=== PATIENT | male | born 1960 | race Caucasian/White ===

== ENCOUNTER 2018-03-30 11:21 | Emergency (ER) | payer BC ==
[2018-03-30] MEDS ORDERED: KETOROLAC TROMETHAMINE INJ/PF 30 MG/1 ML SDV IV ONE (11:45)
[2018-03-30] MEDS ORDERED: ONDANSETRON HCL INJ/PF 4 MG/2 ML SDV IV ONE (11:45)
--- NOTE | 2018-03-30 12:24 | ER Document Report ---
Entered by FANNY NEAL SCRIBE 03/30/18 1159 Acting as scribe for:WILL CARDOSO DO ED Medical Screen (RME) - General Chief Complaint: Flank Pain Stated Complaint: FLANK PAIN Time Seen by Provider: 03/30/18 11:36 Primary Care Provider: WENDY AGUILAR MD [Primary Care Provider] - Follow up as needed Mode of Arrival: Ambulatory Information source: Patient Notes: Patient is a 37-year-old male with history of kidney stones presents to the emergency department complaining of left lower back pain. Patient states the pain radiates from his left lower back into his left lower abdomen. He states his current pain is similar to an kidney stone he had 15 years ago and was diagnosed with kidney stones via a CT scan. States that he had 22 kidney stones removed 15 years ago. Has not had one since then. Denies any dysuria. I have greeted and performed a rapid initial assessment of this patient. A comprehensive ED assessment and evaluation of the patient, analysis of test results and completion of the medical decision making process will be conducted by additional ED providers. GENERAL: Alert, Appears uncomfortable. Occasionally holds left lower back. HEAD: Normocephalic, Atraumatic. EYES: Pupils equal, round, and reactive to light. EOMI. ENT: Oral mucosa moist, tongue midline. NECK: Full range of motion. Supple. Trachea midline. LUNGS: No respiratory distress. EXTREMITIES: Moves all four extremities spontaneously. PSYCH: Normal affect, normal mood. TRAVEL OUTSIDE OF THE [place] IN LAST 30 DAYS: No - Related Data Allergies/Adverse Reactions: No Known Allergies Allergy (Verified 03/30/18 11:35) Past Medical History - Social History Frequency of alcohol use: Rare Drug Abuse: None - Past Medical History Cardiac Medical History: Reports: Hx Hypercholesterolemia, Hx Hypertension Renal/ Medical History: Reports: Hx Kidney Stones. Denies: Hx Peritoneal Dialysis GI Medical History: Reports: Hx Gastroesophageal Reflux Disease Musculoskeltal Medical History: Reports Hx Arthritis Past Surgical History: Reports: Hx Orthopedic Surgery - rkr - Immunizations Hx Diphtheria, Pertussis, Tetanus Vaccination: Yes Physical Exam - Vital signs Vitals: Temp Pulse Resp BP Pulse Ox 97.9 F 89 19 157/103 H 99 03/30/18 11:28 03/30/18 11:28 03/30/18 11:28 03/30/18 11:28 03/30/18 11:28 Course - Vital Signs Vital signs: Temp Pulse Resp BP Pulse Ox 97.9 F 89 19 157/103 H 99 03/30/18 11:28 03/30/18 11:28 03/30/18 11:28 03/30/18 11:28 03/30/18 11:28 Doctor's Discharge - Discharge Referrals: WENDY AGUILAR MD [Primary Care Provider] - Follow up as needed I personally performed the services described in the documentation, reviewed and edited the documentation which was dictated to the scribe in my presence, and it accurately records my words and actions.
[2018-03-30 13:20] LABS: APPEARANCE,URINE SLIGHTLY-CLOUDY; BILIRUBIN,URINE NEGATIVE (NEGATIVE); COLOR,URINE YELLOW; GLUCOSE, URINE NEGATIVE (NEGATIVE); KETONES,URINE NEGATIVE (NEGATIVE); LEUKOCYTE ESTERASE,URINE NEGATIVE (NEGATIVE); NITRITE,URINE NEGATIVE (NEGATIVE); PROTEIN,URINE 30 mg/dL (NEGATIVE); URINE SPECIFIC GRAVITY 1.016; UROBILINOGEN,URINE NEGATIVE mg/dL (<2.0)
--- NOTE | 2018-03-30 13:38 | RADIOLOGY REPORT (SQ) ---
EXAM DESCRIPTION: CT ABD/PELVIS NO ORAL OR IV COMPLETED DATE/TIME: 03/30/2018 1:11 pm REASON FOR STUDY: left flank pain, h/o stones COMPARISON: KUB 04/11/2015 TECHNIQUE: CT scan of the abdomen and pelvis performed without intravenous or oral contrast. Images reviewed with lung, soft tissue, and bone windows. Reconstructed coronal and sagittal MPR images revi ewed. All images stored on PACS. All CT scanners at this facility use dose modulation, iterative reconstruction, and/or weight based d osing when appropriate to reduce radiation dose to as low as reasonably achievable (ALARA). [facility]: Dose Right [facility]: CareDose [facility]: Dose Right [facility]: Teradose 4D [facility]: Smart [employer] RADIATION DOSE: CT Rad equipment meets quality standard of care and radiation dose reduction techniq ues were employed. CTDIvol: 15.7 mGy. DLP: 933 mGy-cm.mGy. LIMITATIONS: None. FINDINGS: LOWER CHEST: No significant findings. No nodules or infiltrates. NON-CONTRASTED LIVER, SPLEEN, ADRENALS: Evaluation limited by lack of IV contrast. No identified sign ificant masses. PANCREAS: No masses. No peripancreatic inflammatory changes. GALLBLADDER: No identified stones by CT criteria. No inflammatory changes to suggest cholecystitis. RIGHT KIDNEY AND URETER: No suspicious masses. Assessment limited by lack of IV contrast. 1 cm cyst right upper and lower pole kidney. No significant calcifications. No hydronephrosis or hydrourete r. LEFT KIDNEY AND URETER: No suspicious masses. Assessment limited by lack of IV contrast. Tiny 2 mm u pper and lower pole intrarenal nonobstructive calculi. No left ureteral stones. No hydronephrosis or hydroureter. AORTA AND RETROPERITONEUM: No aneurysm. No retroperitoneal masses or adenopathy. BOWEL AND PERITONEAL CAVITY: No obvious masses or inflammatory changes. No free fluid.Descending and sigmoid colon diverticuli without diverticulitis APPENDIX: Normal. PELVIS, BLADDER, AND ABDOMINAL WALL:No abnormal masses. No free fluid. Bladder normal. BONES: No significant findings. OTHER: No other significant finding. IMPRESSION: NO SIGNIFICANT OR ACUTE PROCESS IN THE ABDOMEN OR PELVIS. COMMENT: Quality ID # [id number]: Final reports with documentation of one or more dose reduction techniques (e.g., Automated exposure control, adjustment of the mA and/or kV according to patient size, use of iterative reconstruction technique) TECHNICAL DOCUMENTATION: JOB ID: [id number] [employer]- All Rights Reserved Reading location - IP/workstation name: [email or web address]
[2018-03-30] MEDS ORDERED: MORPHINE SULFATE 10 MG/ML INJ IV ONE (13:45)
[2018-03-30 14:45] LABS: ABSOLUTE BASOPHILS # (AUTO) 0.1 10^3/uL (0.0-0.2); ABSOLUTE EOSINOPHILS # (AUTO) 0.2 10^3/uL (0.0-0.6); ABSOLUTE LYMPHOCYTES (AUTO) 2.9 10^3/uL (0.5-4.7); ABSOLUTE MONOCYTES (AUTO) 0.7 10^3/uL (0.1-1.4); ABSOLUTE NEUT (AUTO) 6.3 10^3/uL (1.7-8.2); LYMPHOCYTES % (AUTO) 28.8 % (13-45); MEAN CORPUSCULAR HEMOGLOBIN 31.9 pg (27.0-33.4); MEAN CORPUSCULAR HGB CONC 34.7 g/dL (32.0-36.0); MEAN CORPUSCULAR VOLUME 92 fl (80-97); MONOCYTES % (AUTO) 6.7 % (3-13); PLATELET COUNT 227 10^3/uL (150-450); RED CELL DISTRIBUTION WIDTH 13.3 % (11.5-14.0); SEGMENTED NEUTROPHILS % (AUTO) 61.5 % (42-78); TOTAL CELLS COUNTED % (AUTO) 100 %; WHITE BLOOD COUNT 10.2 10^3/uL (4.0-10.5)
[2018-03-30 15:05] LABS: ALANINE AMINOTRANSFERASE 66 U/L (21-72); ALBUMIN 4.8 g/dL (3.5-5.0); ALKALINE PHOSPHATASE 81 U/L (38-126); ANION GAP 13 (5-19); ASPARTATE AMINO TRANSFERASE 41 U/L (17-59); BILIRUBIN,DIRECT 0.2 mg/dL (0.0-0.4); BILIRUBIN,TOTAL 0.7 mg/dL (0.2-1.3); BLOOD UREA NITROGEN 15 mg/dL (7-20); CALCIUM 9.5 mg/dL (8.4-10.2); CARBON DIOXIDE 24 mmol/L (22-30); CHLORIDE 106 mmol/L (98-107); GLUCOSE 85 mg/dL (75-110); POTASSIUM 3.9 mmol/L (3.6-5.0); SODIUM 142.7 mmol/L (137-145); TOTAL PROTEIN 7.2 g/dL (6.3-8.2)
--- NOTE | 2018-03-30 16:01 | ER Document Report ---
ED General - General Chief Complaint: Flank Pain Stated Complaint: FLANK PAIN Time Seen by Provider: 03/30/18 11:36 Mode of Arrival: Ambulatory Notes: Patient is an otherwise healthy 57-year-old male who presents with chief complaint of left-sided flank pain that is been ongoing for approximately 2 days. Patient reports the pain is intermittent and feels similar to when he has had kidney stones in the past. Patient denies any difficulty urine and denies any blood in his urine. Patient has not had any fever. Patient reports nausea but has had no vomiting or diarrhea. TRAVEL OUTSIDE OF THE [place] IN LAST 30 DAYS: No - Related Data Allergies/Adverse Reactions: No Known Allergies Allergy (Verified 03/30/18 11:35) Past Medical History - General Information source: Patient - Social History Smoking Status: Current Every Day Smoker Frequency of alcohol use: Rare Drug Abuse: None Family History: Reviewed & Not Pertinent Patient has suicidal ideation: No Patient has homicidal ideation: No - Past Medical History Cardiac Medical History: Reports: Hx Hypercholesterolemia, Hx Hypertension Renal/ Medical History: Reports: Hx Kidney Stones. Denies: Hx Peritoneal Dialysis GI Medical History: Reports: Hx Gastroesophageal Reflux Disease Musculoskeletal Medical History: Reports Hx Arthritis Past Surgical History: Reports: Hx Orthopedic Surgery - rkr - Immunizations Hx Diphtheria, Pertussis, Tetanus Vaccination: Yes Review of Systems - Review of Systems Constitutional: No symptoms reported EENT: No symptoms reported Cardiovascular: No symptoms reported Respiratory: No symptoms reported Gastrointestinal: No symptoms reported Genitourinary: Flank pain Male Genitourinary: No symptoms reported Musculoskeletal: No symptoms reported Skin: No symptoms reported Hematologic/Lymphatic: No symptoms reported Neurological/Psychological: No symptoms reported Physical Exam - Vital signs Vitals: Temp Pulse Resp BP Pulse Ox 97.9 F 89 19 157/103 H 99 03/30/18 11:28 03/30/18 11:28 03/30/18 11:28 03/30/18 11:28 03/30/18 11:28 - Notes Notes: PHYSICAL EXAMINATION: GENERAL: Well-appearing, well-nourished and in no acute distress. HEAD: Atraumatic, normocephalic. EYES: Pupils equal round and reactive to light, extraocular movements intact, sclera anicteric, conjunctiva are normal. ENT: Nares patent, oropharynx clear without exudates. Moist mucous membranes. NECK: Normal range of motion, supple without lymphadenopathy LUNGS: Breath sounds clear to auscultation bilaterally and equal. No wheezes rales or rhonchi. HEART: Regular rate and rhythm without murmurs ABDOMEN: Soft, nontender, nondistended abdomen. No guarding, no rebound. No masses appreciated. Musculoskeletal: Normal range of motion, no pitting or edema. No cyanosis. NEUROLOGICAL: Cranial nerves grossly intact. Normal speech, normal gait. Normal sensory, motor exams PSYCH: Normal mood, normal affect. SKIN: Warm, Dry, normal turgor, no rashes or lesions noted. Course - Re-evaluation Re-evalutation: Labs as recorded are unremarkable. CT renal stone study is negative for any acute findings to include kidney stones. Patient did mention initially that when his pain radiates occasionally radiates all the way down into his testicle. This was discussed further with the patient who declines to have a testicular exam done and also declines the offer of a testicular ultrasound. Patient does report his pain is much more tolerable at this time. Patient will be discharged home in stable condition. We did discuss the possibility that patient's stone has already passed which is why no stone was identified on CT and why patient is feeling better. Patient was given strict ED return precautions. - Vital Signs Vital signs: Temp Pulse Resp BP Pulse Ox 97.9 F 71 16 150/85 H 100 03/30/18 16:06 03/30/18 16:06 03/30/18 16:06 03/30/18 16:06 03/30/18 16:06 - Laboratory Result Diagrams: 03/30/18 14:32 03/30/18 14:32 Laboratory results interpreted by me: 03/30/18 12:38 Urine Protein 30 H Discharge - Discharge Clinical Impression: Flank pain Condition: Stable Disposition: HOME, SELF-CARE Additional Instructions: You were seen and evaluated today in the emergency department for flank pain. The CT did not show any evidence of kidney stone or any other life-threatening cause of your pain. Your blood work and urine today were normal. I have prescribed you some pain medication in case the pain returns. If the pain returns and is worse or persistent or you develop nausea and vomiting or fever please return to the emergency department. You may also follow-up with your primary care provider as we have discussed. Prescriptions: Hydrocodone Bit/Acetaminophen [Hydrocodon-Acetaminophen 5-325] 1 each PO Q4H #12 tablet
[2018-03-30 16:15] VITALS: BP 150/85
== END 2018-03-30 16:17 | disposition home or self-care (01) ==
LOC: ER 11:21
DX: R10.9 Unspecified abdominal pain (principal); R11.0 Nausea; F17.200 Nicotine dependence, unspecified, uncomplicated; I10 Essential (primary) hypertension
CPT/HCPCS: 99284; 96374; 96375; 36415; 85025; 80053; 81001; 74176; J1885; J2270; J2405

== ENCOUNTER 2019-08-07 05:24 | Day surgery (SDC) | payer BC ==
[2019-08-04 10:34] LABS: ABSOLUTE BASOPHILS # (AUTO) 0.1 10^3/uL (0.0-0.2); ABSOLUTE EOSINOPHILS # (AUTO) 0.2 10^3/uL (0.0-0.6); ABSOLUTE LYMPHOCYTES (AUTO) 2.3 10^3/uL (0.5-4.7); ABSOLUTE MONOCYTES (AUTO) 0.6 10^3/uL (0.1-1.4); ABSOLUTE NEUT (AUTO) 7.2 10^3/uL (1.7-8.2); BASOPHILS % (AUTO) 0.6 % (0-2); EOSINOPHILS % (AUTO) 2.3 % (0-6); HEMATOCRIT 46.4 % (37.9-51.0); HEMOGLOBIN 16.2 g/dL (13.5-17.0); LYMPHOCYTES % (AUTO) 21.8 % (13-45); MEAN CORPUSCULAR HEMOGLOBIN 32.6 pg (27.0-33.4); MEAN CORPUSCULAR HGB CONC 34.9 g/dL (32.0-36.0); MEAN CORPUSCULAR VOLUME 93 fl (80-97); MONOCYTES % (AUTO) 5.9 % (3-13); PLATELET COUNT 235 10^3/uL (150-450); RED BLOOD COUNT 4.97 10^6/uL (4.35-5.55); RED CELL DISTRIBUTION WIDTH 13.2 % (11.5-14.0); SEGMENTED NEUTROPHILS % (AUTO) 69.4 % (42-78); TOTAL CELLS COUNTED % (AUTO) 100 %; WHITE BLOOD COUNT 10.4 10^3/uL (4.0-10.5)
--- NOTE | 2019-08-04 10:36 | EKG REPORT ---
SEVERITY:- NORMAL ECG - SINUS RHYTHM : Confirmed by: Joann Jacinto 04-Aug-2019 10:35:00
[2019-08-04 10:59] LABS: ANION GAP 7 (5-19); BLOOD UREA NITROGEN 17 mg/dL (7-20); CALCIUM 9.6 mg/dL (8.4-10.2); CARBON DIOXIDE 25 mmol/L (22-30); CHLORIDE 107 mmol/L (98-107); GLUCOSE 92 mg/dL (75-110); POTASSIUM 4.5 mmol/L (3.6-5.0)
[~2019-08-07 05:24] MED LIST: ACETAMINOPHEN 325 MG TABLET ONE; ACETAMINOPHEN 325 MG TABLET PO PRN; CEFAZOLIN 2 GM/D5W RTU 2 GM/50 ML RTUPB IV ONE; CEFAZOLIN 2 GM/D5W RTU 2 GM/50 ML RTUPB IV PRN; IBUPROFEN 800 MG in NORMAL SALINE 250 ML IV PRN; LACTATED RINGERS 1000 ML IV PRN; LIDOCAINE 0.5% INJ-PF (5 MG/ML) 50 ML SDV SUBCUT PRN; RINGERS SOLUTION,LACTATED 1,000 ML IV PRN
[2019-08-07] MEDS ORDERED: MORPHINE SULFATE 10 MG/ML INJ ONE (06:49)
[2019-08-07] MEDS ORDERED: FENTANYL CITRATE INJ/PF 100 MCG/2 ML AMPUL ONE (06:49)
[2019-08-07] MEDS ORDERED: MIDAZOLAM 2 MG/2 ML INJ ONE (06:49)
[2019-08-07] MEDS ORDERED: PROPOFOL INJ 200 MG/20 ML VIAL IV ONE (06:50)
[2019-08-07] MEDS ORDERED: BUPIVACAINE HCL 0.25 % INJ/PF (2.5 MG/1 ML) 30 ML VIAL ONE (07:22)
[2019-08-07] MEDS ORDERED: SUGAMMADEX SODIUM 200 MG/2 ML SDV IV ONE (08:48)
[2019-08-07] MEDS ORDERED: MORPHINE SULFATE 10 MG/ML INJ IV PRN (09:52)
[2019-08-07] MEDS ORDERED: FENTANYL CITRATE INJ/PF 100 MCG/2 ML AMPUL IV PRN ×3 (09:52)
[2019-08-07] MEDS ORDERED: DIPHENHYDRAMINE HCL 50 MG/ML VIAL IV PRN (09:52)
[2019-08-07] MEDS ORDERED: MEPERIDINE HCL/PF INJ 25 MG/1 ML DISP.SYRIN IV PRN (09:52)
[2019-08-07] MEDS ORDERED: PROMETHAZINE HCL INJ 25 MG/1 ML VIAL IV PRN ×2 (09:52)
[2019-08-07] MEDS ORDERED: ONDANSETRON HCL INJ/PF 4 MG/2 ML SDV IV PRN (09:52)
[2019-08-07] MEDS ORDERED: EPHEDRINE SULFATE INJ 50 MG/1 ML AMPULE ONE (10:10)
[2019-08-07] MEDS ORDERED: HYDROCODONE/ACETAMINOPHEN 10-325 MG TABLET PO PRN (10:20)
--- NOTE | 2019-08-07 10:20 | Operative Report ---
Nonrecallable Operative Report DATE OF SURGERY: 08/07/19 PREOPERATIVE DIAGNOSIS: Symptomatic Bilateral inguinal hernia POSTOPERATIVE DIAGNOSIS: Bilateral pantaloon inguinal hernias OPERATION: Robot-assisted bilateral inguinal hernia repair with mesh SURGEON: TUNG DALY 1ST [employer] EDUCATOR: SILVINA COE ANESTHESIA: GA TISSUE REMOVED OR ALTERED: None COMPLICATIONS: None apparent ESTIMATED BLOOD LOSS: Minimal PROCEDURE: Drains/implants: Large right-sided and left-sided 3 DMax inguinal hernia mesh. Procedure in detail: After informed consent was obtained, the patient was brought to the operating room and laid in the supine position. The area of the abdomen was prepped and draped in a normal sterile fashion. A supraumbilical incision was created with a 15 blade scalpel. Dissection was carried through the subcutaneous tissues using sharp and blunt dissection. The linea alba fa scia was incised sharply, the abdomen was entered sharply. The balloon trocar was inserted, pneumoperitoneum was achieved. 2 8 mm robotic trochars were placed under direct laparoscopic visualization in the right and left lateral abdominal wall. The robot was then brought over the patient and docked appropriately. I then assumed my position at the surgeon's console. Attention was turned to dissection of the left groin. A preperitoneal dissection was undertaken approximately 3 cm superior to the inguinal hernia defects. There was found to be both a direct and indirect hernia defect. The medial dissection was undertaken, and the hernia sac was dissected free of the defect. The direct defect was closed using nonabsorbable 2-0 V Lock Suture in simple running fashion. Next, attention was turned to the cord structures. The hernia sac was freed from the cord structures, taking great care not to injure the cord structures. Once this was completed, a large left-sided 3D max inguinal hernia mesh was placed into the preperitoneal space. It was sutured medially and superiorly using 3-0 Vicryl suture. Once it was found to lie in good position, attention was turned to the right groin. Preperitoneal dissection, in similar fashion, was undertaken on the right side. This was performed 3 cm superior to the inguinal hernia defects. The patient also had a right-sided direct and indirect inguinal hernia defect. The preperitoneal dissection was undertaken. The medial hernia defect and lateral hernia defects were dissected free. The hernia sac was cleared from the cord structures. This was done with great care, so as not to injure the cord structures. The direct hernia defect was then closed using 2-0 nonabsorbable V lock suture. Once this was completed, the right sided 3 DMax inguinal hernia mesh was placed into the preperitoneal space. It was sutured to the abdominal wall medially and superiorly. The mesh was found to lie in good position. Next, the peritoneal openings were closed using 2-0 V Lock suture in simple running fashion. The robot was then undocked, and I scrubbed back into the case. The 8 mm robotic trochars were then removed under direct laparoscopic visualization. The 12 mm trocar was removed, and pneumoperitoneum was relieved. The supraumbilical fascia was closed using 0 Vicryl suture in [id number] fashion. The overlying skin was closed using 4-0 Vicryl Rapide suture in subcuticular fashion. Dressings were placed, and the procedure was concluded. All sponge, instrument, needle counts were correct x2. Condition: Stable. Silvina Coe PA-C was scrubbed and present the entirety of the procedure. She assisted with all portions of the procedure including opening of the abdomen, placement of the trochars, docking of the robot, exchanging of the robotic instruments, placement of the mesh, closure of the fascia, and closure of the skin.
--- NOTE | 2019-08-07 10:27 | Discharge Summary ---
Discharge Summary (SDC) - Discharge Final Diagnosis: Bilateral pantaloon, symptomatic inguinal hernias. Date of Surgery: 08/07/19 Discharge Date: 08/07/19 Condition: Stable Treatment or Instructions: Discharge home. Diet as tolerated. Activity: No lifting greater than 10 pounds. Follow-up with me in 7 to 10 days. Okay to shower starting on Saturday. [place] 10/325 mg p.o. every 6 hours as needed for pain. Ibuprofen 800 mg p.o. 3 times daily with meals. Prescriptions: Ibuprofen [Motrin 800 mg Tablet] 800 mg PO MEALS #42 tablet Referrals: MARII CRUZ PA-C [Primary Care Provider] - Discharge Diet: As Tolerated Respiratory Treatments at Home: Deep Breathing/Coughing, Incentive Spirometer Discharge Activity: No Lifting Over 10 Pounds, No Lifting/Push/Pulling Home Care Assistance: None Needed Report the Following to Your Physician Immediately: Shortness of Breath, Nausea, Vomiting, Increase in Pain, Fever over 101 Degrees, Unusual Bleeding, Redness, Swelling, Warmth
[2019-08-07] MEDS ORDERED: LIDOCAINE 2% INJ-PF (20 MG/ML) 2 ML AMPUL ONE (10:47)
[2019-08-07] MEDS ORDERED: ROCURONIUM BROMIDE INJ 50 MG/5 ML VIAL IV ONE (10:47)
[2019-08-07] MEDS ORDERED: ONDANSETRON HCL INJ/PF 4 MG/2 ML SDV ONE (10:47)
[2019-08-07] MEDS ORDERED: NEOSTIGMINE METHYLSULFATE 10 MG/10 ML VIAL ONE (10:47)
[2019-08-07] MEDS ORDERED: SUCCINYLCHOLINE CHLORIDE INJ 200 MG/10 ML VIAL ONE (10:47)
[2019-08-07] MEDS ORDERED: DEXAMETHASONE SOD PHOSPHATE INJ 4 MG/1 ML VIAL ONE (10:47)
[2019-08-07] MEDS ORDERED: GLYCOPYRROLATE 1 MG/5 ML VIAL ONE (10:47)
[2019-08-07] MEDS ORDERED: HYDROCODONE/ACETAMINOPHEN 10-325 MG TABLET ONE (10:58)
[2019-08-07 11:53] VITALS: BP 120/77
== END 2019-08-07 11:50 | disposition home or self-care (01) ==
LOC: OROUT 05:24
PROVIDERS: ATTEND Surgery
DX: K40.20 Bilateral inguinal hernia, without obstruction or gangrene, not specified as recurrent (principal); E78.2 Mixed hyperlipidemia; I10 Essential (primary) hypertension; K21.9 Gastro-esophageal reflux disease without esophagitis; F17.210 Nicotine dependence, cigarettes, uncomplicated; Z79.899 Other long term (current) drug therapy; Z86.010 Personal history of colon polyps; Z88.5 Allergy status to narcotic agent; Z96.651 Presence of right artificial knee joint
CPT/HCPCS: 49650; S2900; 36415; 80048; 840; 85025; 86850; 86900; 86901; 87635; 93005; 93010; C1781; C9803; J0330; J0690; J1100; J1741; J2250; J2270; J2405; J2704; J2710; J3010; J3490; J7050

== ENCOUNTER 2019-08-24 14:29 | Emergency (ER) | payer BC ==
[2019-08-24 16:19] LABS: HEMATOCRIT 42.1 % (37.9-51.0); HEMOGLOBIN 14.7 g/dL (13.5-17.0); MEAN CORPUSCULAR HEMOGLOBIN 32.4 pg (27.0-33.4); MEAN CORPUSCULAR HGB CONC 34.8 g/dL (32.0-36.0); MEAN CORPUSCULAR VOLUME 93 fl (80-97); PLATELET COUNT 214 10^3/uL (150-450); RED BLOOD COUNT 4.52 10^6/uL (4.35-5.55); RED CELL DISTRIBUTION WIDTH 13.4 % (11.5-14.0); WHITE BLOOD COUNT 11.2 10^3/uL (4.0-10.5)
[2019-08-24 16:24] LABS: APPEARANCE,URINE SLIGHTLY-CLOUDY; BILIRUBIN,URINE NEGATIVE (NEGATIVE); COLOR,URINE AMBER; GLUCOSE, URINE NEGATIVE (NEGATIVE); KETONES,URINE NEGATIVE (NEGATIVE); LEUKOCYTE ESTERASE,URINE NEGATIVE (NEGATIVE); NITRITE,URINE NEGATIVE (NEGATIVE); PROTEIN,URINE 100 mg/dL (NEGATIVE); URINE SPECIFIC GRAVITY 1.025
[2019-08-24 16:39] LABS: ABSOLUTE LYMPHOCYTES# (MANUAL) 0.4 10^3/uL (0.5-4.7); ABSOLUTE MONOCYTES # (MANUAL) 0.3 10^3/uL (0.1-1.4); BAND NEUTROPHILS % (MANUAL) 3 % (3-5); BASOPHILS % (MANUAL) 0 % (0-2); EOSINOPHILS % (MANUAL) 0 % (0-6); LYMPHOCYTES % (MANUAL) 3 % (13-45); MONOCYTES % (MANUAL) 3 % (3-13); SEGMENTED NEUTROPHILS % (MAN) 90 % (42-78); TOTAL CELLS COUNTED 100
[2019-08-24 16:42] LABS: PLATELET COMMENT ADEQUATE
[2019-08-24 16:44] LABS: RBC MORPHOLOGY COMMENT NORMO-CYTIC/CHROMIC; TOXIC VACUOLATION PRESENT
[2019-08-24 16:46] LABS: ALBUMIN 4.2 g/dL (3.5-5.0); ALKALINE PHOSPHATASE 72 U/L (38-126); ANION GAP 8 (5-19); ASPARTATE AMINO TRANSFERASE 37 U/L (17-59); BILIRUBIN,DIRECT 0.2 mg/dL (0.0-0.4); BLOOD UREA NITROGEN 19 mg/dL (7-20); CALCIUM 9.1 mg/dL (8.4-10.2); CARBON DIOXIDE 22 mmol/L (22-30); CHLORIDE 105 mmol/L (98-107); GLUCOSE 112 mg/dL (75-110); POTASSIUM 3.5 mmol/L (3.6-5.0)
--- NOTE | 2019-08-24 17:56 | RADIOLOGY REPORT (SQ) ---
EXAM DESCRIPTION: CHEST SINGLE VIEW IMAGES COMPLETED DATE/TIME: 08/24/2019 5:46 pm REASON FOR STUDY: fever COMPARISON: None. EXAM PARAMETERS: NUMBER OF VIEWS: One view. TECHNIQUE: Single frontal radiographic view of the chest acquired. RADIATION DOSE: NA LIMITATIONS: None. FINDINGS: LUNGS AND PLEURA: Slight bibasilar parenchymal densities are suggested may represent infi ltrates/atelectasis. No pneumothorax or pleural effusion. MEDIASTINUM AND HILAR STRUCTURES: No masses. Contour normal. HEART AND VASCULAR STRUCTURES: Heart normal in size. Normal vasculature. BONES: No acute findings. HARDWARE: None in the chest. OTHER: No other significant finding. IMPRESSION: 1. Slight bibasilar parenchymal densities are suggested, may represent infiltrates/atel ectasis. TECHNICAL DOCUMENTATION: JOB ID: [id number] 2010 [employer]- All Rights Reserved Reading location - IP/workstation name: [email or web address]
[2019-08-24] MEDS ORDERED: CEFTRIAXONE 1 GM/D5W RTU 1 GM/50 ML RTUPB IV ONE (17:58)
[2019-08-24] MEDS ORDERED: AZITHROMYCIN INJ 500 MG VIAL IV ONE (18:02)
[2019-08-24] MEDS ORDERED: POTASSIUM CHLORIDE 20 MEQ PACKET PO ONE (18:42)
[2019-08-24] MEDS: RINGERS SOLUTION,LACTATED 1,000 ML IV PRN ×2 (18:49→22:06)
[2019-08-24] MEDS ORDERED: ACETAMINOPHEN 325 MG TABLET PO ONE (19:11)
--- NOTE | 2019-08-24 20:40 | ER Document Report ---
Entered by ANDERS HART SCRIBE 08/24/19 1723 Acting as scribe for:LAURIE PUGH, ED General - General Chief Complaint: Fever Stated Complaint: FEVER/CHILLS Time Seen by Provider: 08/24/19 17:13 Primary Care Provider: MARII CRUZ PA-C [Primary Care Provider] - Follow up as needed Mode of Arrival: Ambulatory Information source: Patient Notes: This 58 year old male patient presents to the emergency department today with complaints of fevers and chills since around 6pm yesterday. Patient reports that he had a left inguinal hernia repaired here on August 06. Patient reports that this has been getting better day by day. Patient denies any cough, sick contacts, or recent travel. TRAVEL OUTSIDE OF THE [place] IN LAST 30 DAYS: No - Related Data Allergies/Adverse Reactions: oxycodone Allergy (Severe, Verified 08/07/19 06:11) Shortness of Breath Past Medical History - General Information source: Patient - Social History Smoking Status: Unknown if Ever Smoked Cigarette use (# per day): No Frequency of alcohol use: None Drug Abuse: None Lives with: Family Family History: Reviewed & Not Pertinent Patient has homicidal ideation: No - Past Medical History Cardiac Medical History: Reports: Hx Hypercholesterolemia, Hx Hypertension Renal/ Medical History: Reports: Hx Kidney Stones GI Medical History: Reports: Hx Gastroesophageal Reflux Disease Musculoskeletal Medical History: Reports Hx Arthritis Past Surgical History: Reports: Hx Orthopedic Surgery - rkr - Immunizations Hx Diphtheria, Pertussis, Tetanus Vaccination: Yes Review of Systems - Review of Systems Constitutional: See HPI, Chills, Fever EENT: No symptoms reported Cardiovascular: No symptoms reported Respiratory: denies: Cough Gastrointestinal: No symptoms reported Genitourinary: No symptoms reported Male Genitourinary: No symptoms reported Musculoskeletal: No symptoms reported Skin: No symptoms reported Hematologic/Lymphatic: No symptoms reported Neurological/Psychological: No symptoms reported -: Yes All other systems reviewed and negative Physical Exam - Vital signs Vitals: Temp Pulse Resp BP Pulse Ox 100.9 F H 100 19 97/58 L 96 08/24/19 15:29 08/24/19 15:29 08/24/19 15:29 08/24/19 15:29 08/24/19 15:29 - Notes Notes: Physical Exam: General: Alert, appears well. HEENT: Normocephalic. Atraumatic. PERRL. Extraocular movements intact. Oropharynx clear. Neck: Supple. Non-tender. Respiratory: No respiratory distress. Clear and equal breath sounds bilaterally. Cardiovascular: Regular rate and rhythm. Abdominal: Obese. Non-tender. No distension. Normal Bowel Sounds. Back: No gross abnormalities. Extremities: Moves all four extremities. Upper extremities: Normal inspection. Normal ROM. Lower extremities: Normal inspection. No edema. Normal ROM. Neurological: Normal cognition. AAOx4. Normal speech. Psychological: Normal affect. Normal Mood. Skin: Dry. Hot to the touch. Normal color. Course - Re-evaluation Re-evalutation: 08/24/19 22:16 MDM 58 year old with htn is post op from hernia surgery with Dr. Amin 08/06 and his abd is soft and the site is not tender. He does seem to have atelectasis vs early infiltrate in both bases. Feel he is safe for dc. After 1 L LR he has SBP 110 and more importantly tells me he feels better. I have discussed follow up with pt and he expressed understanding. - Vital Signs Vital signs: Temp Pulse Resp BP Pulse Ox 100.1 F 99 14 135/74 H 94 08/24/19 23:27 08/24/19 23:27 08/24/19 23:27 08/24/19 23:27 08/24/19 23:27 - Laboratory Result Diagrams: 08/24/19 15:53 08/24/19 15:53 Laboratory results interpreted by me: 08/24/19 08/24/19 08/24/19 15:53 15:53 15:53 WBC 11.2 H Seg Neuts % (Manual) 90 H Lymphocytes % (Manual) 3 L Abs Neuts (Manual) 10.4 H Abs Lymphs (Manual) 0.4 L Sodium 134.9 L Potassium 3.5 L Creatinine 1.29 H Est GFR (MDRD) Non-Af 57 L Glucose 112 H Urine Protein 100 H Urine Blood SMALL H Urine Urobilinogen 2.0 H - Diagnostic Test Radiology reviewed: Image reviewed, Reports reviewed Discharge - Discharge Clinical Impression: Hypokalemia CAP (community acquired pneumonia) Qualifiers: Laterality: unspecified laterality Qualified Code(s): J18.9 - Pneumonia, unspecified organism Condition: Stable Disposition: HOME, SELF-CARE Instructions: Acetaminophen, Fever ([facility]), Pneumonia ([facility]) Additional Instructions: Rest, fluids, antibiotics as directed. See your doctor in follow up. Call in the morning to schedule. Please return here for inability to tolerate the medicine, persistent vomiting, dizziness or other concerns. Prescriptions: Albuterol Sulfate [Albuterol Sulfate Hfa] 6.7 gm IH TID #1 hfa.aer.ad Azithromycin [Zithromax] 500 mg PO DAILY 5 Days #10 tablet Referrals: MARII CRUZ PA-C [Primary Care Provider] - Follow up as needed I personally performed the services described in the documentation, reviewed and edited the documentation which was dictated to the scribe in my presence, and it accurately records my words and actions.
[2019-08-24] MEDS ORDERED: IBUPROFEN 600 MG TABLET PO ONE (23:32)
[2019-08-24 23:37] VITALS: BP 135/74
== END 2019-08-24 23:37 | disposition home or self-care (01) ==
LOC: ER 14:29
DX: J18.9 Pneumonia, unspecified organism (principal); E87.6 Hypokalemia; R50.9 Fever, unspecified; R05 Cough; I10 Essential (primary) hypertension; Z98.890 Other specified postprocedural states; Z88.6 Allergy status to analgesic agent; Z88.5 Allergy status to narcotic agent
CPT/HCPCS: 99285; 96361; 96365; 96367; 36415; 87040; 85025; 87077; 80053; 81001; 87150 ×26; 71045; J7120; J0456; J0696; J3490

== ENCOUNTER 2019-08-27 10:36 | Emergency (ER) | payer BC ==
[2019-08-27] MEDS ORDERED: NORMAL SALINE 1000 ML 1,000 ML IV ONE ×2 (11:00→13:53)
[2019-08-27 11:51] LABS: ABSOLUTE EOSINOPHILS # (AUTO) 0.3 10^3/uL (0.0-0.6); ABSOLUTE LYMPHOCYTES (AUTO) 1.3 10^3/uL (0.5-4.7); ABSOLUTE MONOCYTES (AUTO) 0.8 10^3/uL (0.1-1.4); ABSOLUTE NEUT (AUTO) 6.3 10^3/uL (1.7-8.2); BASOPHILS % (AUTO) 0.5 % (0-2); EOSINOPHILS % (AUTO) 3.3 % (0-6); HEMATOCRIT 41.3 % (37.9-51.0); HEMOGLOBIN 14.4 g/dL (13.5-17.0); LYMPHOCYTES % (AUTO) 14.4 % (13-45); MEAN CORPUSCULAR HEMOGLOBIN 32.1 pg (27.0-33.4); MEAN CORPUSCULAR HGB CONC 34.7 g/dL (32.0-36.0); MEAN CORPUSCULAR VOLUME 92 fl (80-97); MONOCYTES % (AUTO) 9.6 % (3-13); PLATELET COUNT 209 10^3/uL (150-450); RED BLOOD COUNT 4.47 10^6/uL (4.35-5.55); RED CELL DISTRIBUTION WIDTH 13.4 % (11.5-14.0); SEGMENTED NEUTROPHILS % (AUTO) 72.2 % (42-78); TOTAL CELLS COUNTED % (AUTO) 100 %; WHITE BLOOD COUNT 8.8 10^3/uL (4.0-10.5)
[2019-08-27 12:19] LABS: ALKALINE PHOSPHATASE 190 U/L (38-126); ANION GAP 8 (5-19); ASPARTATE AMINO TRANSFERASE 66 U/L (17-59); BILIRUBIN,DIRECT 0.1 mg/dL (0.0-0.4); BILIRUBIN,TOTAL 0.6 mg/dL (0.2-1.3); BLOOD UREA NITROGEN 14 mg/dL (7-20); CALCIUM 9.3 mg/dL (8.4-10.2); CARBON DIOXIDE 26 mmol/L (22-30); CHLORIDE 106 mmol/L (98-107); CREATINE KINASE 46 U/L (55-170); GLUCOSE 98 mg/dL (75-110); POTASSIUM 3.7 mmol/L (3.6-5.0); TOTAL PROTEIN 6.9 g/dL (6.3-8.2)
[2019-08-27 12:30] LABS: CREATINE KINASE MB 0.28 ng/mL (<4.55)
[2019-08-27 12:32] LABS: TROPONIN I < 0.012 ng/mL
--- NOTE | 2019-08-27 13:03 | RADIOLOGY REPORT (SQ) ---
EXAM DESCRIPTION: CHEST SINGLE VIEW IMAGES COMPLETED DATE/TIME: 08/27/2019 12:27 pm REASON FOR STUDY: pneumonia COMPARISON: 08/24/2019. EXAM PARAMETERS: NUMBER OF VIEWS: One view. TECHNIQUE: Single frontal radiographic view of the chest acquired. RADIATION DOSE: NA LIMITATIONS: None. FINDINGS: LUNGS AND PLEURA: No opacities, masses or pneumothorax. No pleural effusion. MEDIASTINUM AND HILAR STRUCTURES: No masses. Contour normal. HEART AND VASCULAR STRUCTURES: Heart normal in size. Normal vasculature. BONES: No acute findings. HARDWARE: None in the chest. OTHER: No other significant finding. IMPRESSION: NO ACUTE RADIOGRAPHIC FINDING IN THE CHEST. TECHNICAL DOCUMENTATION: JOB ID: [id number] 2010 [employer]- All Rights Reserved Reading location - IP/workstation name: [email or web address]
[2019-08-27] MEDS ORDERED: CEFTRIAXONE 1 GM/D5W RTU 1 GM/50 ML RTUPB IV ONE (13:53)
--- NOTE | 2019-08-27 14:01 | ER Document Report ---
ED General - General Chief Complaint: Cold Symptoms Stated Complaint: CHILLS,WEAKNESS Time Seen by Provider: 08/27/19 13:03 Primary Care Provider: TUNG AMIN MD [ACTIVE STAFF] - Follow up tomorrow MARII CRUZ PA-C [Primary Care Provider] - Follow up tomorrow Mode of Arrival: Ambulatory Information source: Patient Notes: Patient presents after receiving a call to return for further evaluation as he had positive blood culture in 2 bottles for E. coli. Patient was seen here 3 days ago and was diagnosed with pneumonia and placed on azithromycin. Patient did recently have bilateral hernia repair surgery on 08/07/2019. Patient states that he has had subjective fever and chills although has not measured a temperature at home. Patient also states that his blood pressure has been lower than normal and was 90s over 60s here in triage. Patient states that he did have a mild cough but it has improved since being on the antibiotic. Patient denies any nausea vomiting or diarrhea. Patient denies any shortness of breath. Patient does complain of continued lower pelvic pain but was told that this should be expected after the type of surgery he had. Patient also complains of generalized fatigue. TRAVEL OUTSIDE OF THE [place] IN LAST 30 DAYS: No - HPI Onset: Other - 4 days ago Quality of pain: Achy Pain Level: 1 Associated symptoms: Chills, Fever. denies: Nonproductive cough, Productive cough, Nausea, Vomiting, Shortness of breath Exacerbated by: Denies Relieved by: Denies Similar symptoms previously: Yes Recently seen / treated by doctor: Yes - Related Data Allergies/Adverse Reactions: oxycodone Allergy (Severe, Verified 08/07/19 06:11) Shortness of Breath Past Medical History - General Information source: Patient - Social History Smoking Status: Current Every Day Smoker Frequency of alcohol use: Occasional Drug Abuse: None Lives with: Family Family History: Reviewed & Not Pertinent Patient has homicidal ideation: No - Past Medical History Cardiac Medical History: Reports: Hx Hypercholesterolemia, Hx Hypertension Neurological Medical History: Denies: Hx Cerebrovascular Accident, Hx Seizures Renal/ Medical History: Reports: Hx Kidney Stones. Denies: Hx Peritoneal Dialysis GI Medical History: Reports: Hx Gastroesophageal Reflux Disease Musculoskeletal Medical History: Reports Hx Arthritis Past Surgical History: Reports: Hx Herniorrhaphy, Hx Orthopedic Surgery - rkr - Immunizations Hx Diphtheria, Pertussis, Tetanus Vaccination: Yes Review of Systems - Review of Systems Constitutional: Chills, Fever EENT: No symptoms reported Cardiovascular: No symptoms reported. denies: Chest pain Respiratory: No symptoms reported. denies: Cough, Short of breath Gastrointestinal: Abdominal pain. denies: Diarrhea, Nausea, Vomiting Genitourinary: No symptoms reported. denies: Dysuria Male Genitourinary: No symptoms reported Musculoskeletal: No symptoms reported. denies: Back pain Skin: No symptoms reported Hematologic/Lymphatic: No symptoms reported Neurological/Psychological: No symptoms reported Physical Exam - Vital signs Vitals: Temp Pulse Resp BP Pulse Ox 98.7 F 99 20 97/66 L 99 08/27/19 10:44 08/27/19 10:44 08/27/19 10:44 08/27/19 10:44 08/27/19 10:44 - General General appearance: Appears well, Alert In distress: None - HEENT Head: Normocephalic, Atraumatic Eyes: Normal Conjunctiva: Normal Nasal: Normal Mouth/Lips: Normal Mucous membranes: Normal Neck: Normal, Supple. No: Lymphadenopathy - Respiratory Respiratory status: No respiratory distress Chest status: Nontender Breath sounds: Normal. No: Rales, Rhonchi, Stridor, Wheezing Chest palpation: Normal - Cardiovascular Rhythm: Regular Heart sounds: S1 appreciated, S2 appreciated - Abdominal Inspection: Other - 3 incisions to abdomen from recent laparoscopic procedure, no surrounding erythema Distension: No distension Bowel sounds: Normal Tenderness: Tender - Lower pelvic and inguinal tenderness. No: Guarding Organomegaly: No organomegaly - Back Back: Normal, Nontender. No: CVA tenderness - Extremities General upper extremity: Normal inspection, Nontender, Normal strength General lower extremity: Normal inspection, Nontender, Normal strength - Neurological Neuro grossly intact: Yes Cognition: Normal Ave Coma Scale Eye Opening: Spontaneous Ave Coma Scale Verbal: Oriented Ave Coma Scale Motor: Obeys Commands Ethel Coma Scale Total: 15 - Psychological Associated symptoms: Normal affect, Normal mood - Skin Skin Temperature: Warm Skin Moisture: Dry Skin Color: Normal Course - Re-evaluation Re-evalutation: 08/27/19 13:53 Patient resting comfortably, denies any complaints at this time. Review of patient's previous blood culture does demonstrate sensitivity to ceftriaxone. 08/27/19 17:54 Received call from radiologist stating that patient has a perforated sigmoid diverticulum on CT scan without any evidence of abscess. Patient does have a fluid collection in the left inguinal area that may likely represent a seroma or hematoma although radiology states this could be a normal postoperative finding although this is difficult to discern. 08/27/19 18:[address] Amin regarding patient presentation and CT report findings. Recommends consultation with on-call surgeon Dr. Wright. Consulted with Dr. Bond who advises getting a rapid COVID and states he will be down to see patient. 08/27/19 18:37 Patient does not want to stay to be admitted. Patient states that he prefers to follow-up on outpatient basis. Patient states he does not like the hospital food does not like to have bowel movements in public places. Patient states that he feels fine and that he is manage his symptoms thus far and prefers to continue his treatment on an outpatient basis. Dr. Velazquez to bedside for examination. Dr. Velazquez examined patient. Dr. Velazquez feels that patient's abdominal exam is benign and that he does not warrant emergent surgery at this time. Advises placing patient on Cipro and Flagyl for 2 weeks and having patient follow-up with Dr. Amin. Good return precautions were discussed with patient. Dr. Velazquez advises discharge and does not feel that patient needs to sign AMA at this time. 08/27/19 18:59 Dr. Velazquez called back after reviewing patient's elevated LFTs. CT scan without any evidence for any gallstones. Patient does not have any upper abdominal tenderness. Dr. Velazquez advises having patient leave AMA at this time but still advises discharging home on Cipro 500 mg twice a day as well as Flagyl 500 mg twice a day for 2 weeks. He advises dosing Flagyl to twice a day given patient's slightly elevated LFTs at this time. The patient has chosen to leave the facility against medical advice. The relevant issues have been reviewed and discussed with the patient and family at the bedside. At the time of this assessment there is no indication for involuntary commitment. The patient is alert, oriented, and able to express c learly their reasoning for not wanting to remain in the emergency department for further treatment. The patient is not clinically psychotic or intoxicated. - Vital Signs Vital signs: Temp Pulse Resp BP Pulse Ox 98.7 F 73 15 134/87 H 97 08/27/19 18:08 08/27/19 11:43 08/27/19 19:01 08/27/19 19:01 08/27/19 19:01 - Laboratory Result Diagrams: 08/27/19 11:37 08/27/19 11:37 Laboratory results interpreted by me: 08/27/19 11:37 AST 66 H ALT 90 H Alkaline Phosphatase 190 H Creatine Kinase 46 L 08/27/19 18:39 Labs- All tests 24 hr 08/27/19 08/27/19 08/27/19 11:37 11:37 11:37 WBC 8.8 RBC 4.47 Hgb 14.4 Hct 41.3 MCV 92 MCH 32.1 MCHC 34.7 RDW 13.4 Plt Count 209 Lymph % (Auto) 14.4 Caldwell % (Auto) 9.6 Eos % (Auto) 3.3 Baso % (Auto) 0.5 Absolute Neuts (auto) 6.3 Absolute Lymphs (auto) 1.3 Absolute Monos (auto) 0.8 Absolute Eos (auto) 0.3 Absolute Basos (auto) 0.0 Seg Neutrophils % 72.2 Sodium 139.9 Potassium 3.7 Chloride 106 Carbon Dioxide 26 Anion Gap 8 BUN 14 Creatinine 1.09 Est GFR ( Amer) > 60 Est GFR (MDRD) Non-Af > 60 Glucose 98 Lactic Acid Calcium 9.3 Total Bilirubin 0.6 Direct Bilirubin 0.1 Neonat Total Bilirubin Not Reportable Neonat Direct Bilirubin Not Reportable Neonat Indirect Bili Not Reportable AST 66 H ALT 90 H Alkaline Phosphatase 190 H Creatine Kinase 46 L CK-MB (CK-2) 0.28 Troponin I < 0.012 Total Protein 6.9 Albumin 4.0 08/27/19 14:16 WBC RBC Hgb Hct MCV MCH MCHC RDW Plt Count Lymph % (Auto) Caldwell % (Auto) Eos % (Auto) Baso % (Auto) Absolute Neuts (auto) Absolute Lymphs (auto) Absolute Monos (auto) Absolute Eos (auto) Absolute Basos (auto) Seg Neutrophils % Sodium Potassium Chloride Carbon Dioxide Anion Gap BUN Creatinine Est GFR ( Amer) Est GFR (MDRD) Non-Af Glucose Lactic Acid 0.7 Calcium Total Bilirubin Direct Bilirubin Neonat Total Bilirubin Neonat Direct Bilirubin Neonat Indirect Bili AST ALT Alkaline Phosphatase Creatine Kinase CK-MB (CK-2) Troponin I Total Protein Albumin - Diagnostic Test Radiology reviewed: Reports reviewed Discharge - Discharge Clinical Impression: Positive blood culture, Perforated diverticulum, Elevated liver function tests, Pelvic pain in male Condition: Fair Disposition: AGAINST MEDICAL ADVICE Instructions: Ciprofloxacin ([facility]), Diverticulitis ([facility]), Metronidazole ([facility]) Additional Instructions: Return immediately for any new or worsening symptoms or if you decide that you would like to continue with your treatment Followup with your primary care provider, call tomorrow to make a followup appointment Follow-up with your surgeon Dr. Amin, call tomorrow to make a follow-up appointment. You should have your blood work rechecked on Saturday as your liver function tests were elevated. Prescriptions: Ciprofloxacin HCl [Cipro 500 mg Tablet] 500 mg PO BID #28 tablet Metronidazole [Flagyl 500 mg Tablet] 500 mg PO BID #28 tablet Referrals: MARII CRUZ PA-C [Primary Care Provider] - Follow up tomorrow TUNG AMIN MD [ACTIVE STAFF] - Follow up tomorrow
--- NOTE | 2019-08-27 17:53 | RADIOLOGY REPORT (SQ) ---
EXAM DESCRIPTION: CT ABD/PELVIS WITH IV ORAL IMAGES COMPLETED DATE/TIME: 08/27/2019 4:21 pm REASON FOR STUDY: pelvic pain, fever/chills, +Bld cx, hx hernia sx. Low abdominal pain. COMPARISON: None. TECHNIQUE: CT scan of the abdomen and pelvis performed using helical scanning technique with dynamic intravenous contrast injection. No oral contrast. Images reviewed with lung, soft tissue, and bone windows. Reconstructed coronal and sagittal MPR images reviewed. Delayed images for evaluation of the urinary system also acquired. All images stored on PACS. All CT scanners at this facility use dose modulation, iterative reconstruction, and/or weight based d osing when appropriate to reduce radiation dose to as low as reasonably achievable (ALARA). [facility]: Dose Right [facility]: CareDose [facility]: Dose Right [facility]: Teradose 4D [facility]: [employer] CONTRAST TYPE AND DOSE: contrast/concentration: Isovue 350.00 mmol/ml; Total Contrast Delivered: 100 .0 ml; Total Saline Delivered: 26.1 ml RENAL FUNCTION: GFR > 60. RADIATION DOSE: CT Rad equipment meets quality standard of care and radiation dose reduction techniq ues were employed. CTDIvol: 13.0 - 17.3 mGy. DLP: 1810 mGy-cm.. LIMITATIONS: None. FINDINGS: LOWER CHEST: Minimal dependent atelectasis. LIVER: Normal size. No masses. No dilated ducts. SPLEEN: Normal size. No focal lesions. PANCREAS: No masses. No significant calcifications. No adjacent inflammation or peripancreatic fluid collections. Pancreatic duct not dilated. GALLBLADDER: No identified stones by CT criteria. No inflammatory changes to suggest cholecystitis. ADRENAL GLANDS: No significant masses or asymmetry. RIGHT KIDNEY AND URETER: Right renal cortical cysts. No definite solid renal mass. No significant calcifications. No hydronephrosis or hydroureter. LEFT KIDNEY AND URETER: No solid masses. No significant calcifications. No hydronephrosis or hydr oureter. AORTA AND VESSELS: No aneurysm. No dissection. Renal arteries, SMA, celiac without stenosis. RETROPERITONEUM: No retroperitoneal adenopathy. No retroperitoneal hemorrhage or hematoma. . BOWEL AND PERITONEAL CAVITY: There is acute sigmoid diverticulitis involving the sigmoid colon. Exte nsive background diverticulosis throughout the colon. No bowel obstruction. No bowel wall thickenin g or mass. Tiny pneumoperitoneum with foci of gas in the mesentery root. No focal drainable abscess . APPENDIX: Not visualized. PELVIS: Prostate has normal size. Urinary bladder has normal contour. Calcified pelvic phleboliths. There is a 3.7 x 3.6 cm fluid collection in the subcutaneous soft tissues of the left inguinal teodoro on, possibly postoperative seroma. Cannot entirely exclude infected fluid collection. ABDOMINAL WALL: No masses. No hernias. BONES: No significant or acute findings. OTHER: No other significant finding. IMPRESSION: 1. Acute perforated sigmoid diverticulitis. Tiny foci of gas in the mesenteric root. No focal drain able abscess. 2. Subcutaneous fluid collection in the left inguinal region may represent postoperative seroma. Can not entirely exclude infected fluid collection. Clinical correlation is recommended. 3. Right renal cortical cysts. COMMENT: Findings discussed with Miguel on 08/27/2019 at 1745 hours. TECHNICAL DOCUMENTATION: JOB ID: [id number] Quality ID # [id number]: Final reports with documentation of one or more dose reduction techniques (e.g., Au tomated exposure control, adjustment of the mA and/or kV according to patient size, use of iterative reconstruction technique) 2010 [employer]- All Rights Reserved Reading location - IP/workstation name: [email or web address]
[2019-08-27] MEDS ORDERED: PIPERACILLIN/TAZOBACTAM 4.5 GM VIAL IV ONE (18:00)
--- NOTE | 2019-08-27 18:23 | EKG REPORT ---
SEVERITY:- NORMAL ECG - SINUS RHYTHM : Confirmed by: Santi Hutton MD 27-Aug-2019 18:22:47
--- NOTE | 2019-08-27 19:14 | PDOC CONSULTATION ---
Consultation Consult Date: 08/27/19 Provider Consulted: MACO GARNER Consult reason:: Acute diverticulitis History of Present Illness Admission Date/PCP: MARII CRUZ PA-C History of Present Illness: WENDY FIGUEROA is a 58 year old male who is about 3 weeks post bilateral inguinal hernia repair and came back to ED on 08/24/2019 for fever and chills. Patient was sent home for possible pneumonia and given a azithromycin. Patient was called in because of positive E. coli on a blood culture. CT scan of the abdomen was done in the ED which showed acute diverticulitis with tiny gas in the mesentery. Patient however denies any abdominal pains nausea vomiting no diarrhea. He did have bowel movement yesterday. Feels a lot better today and hesitant to be admitted to the hospital. Past Medical History Cardiac Medical History: Reports: Hyperlipidema, Hypertension Denies: Coronary Artery Disease, Myocardial Infarction Pulmonary Medical History: Denies: Asthma, Bronchitis, Chronic Obstructive Pulmonary Disease (COPD), Pneumonia Neurological Medical History: Denies: Seizures GI Medical History: Reports: Gastroesophageal Reflux Disease Musculoskeltal Medical History: Reports: Arthritis Hematology: Denies: Anemia Past Surgical History Past Surgical History: Reports: Orthopedic Surgery - rkr, Other - Bilateral inguinal hernia repair 08/07/[address] Amin Social History Smoking Status: Current Every Day Smoker Family History Family History: Reviewed & Not Pertinent Parental Family History Reviewed: Yes Children Family History Reviewed: No Sibling(s) Family History Reviewed.: No Medication/Allergy Home Medications: Amlodipine Besylate [Norvasc 10 mg Tablet] 10 mg PO DAILY 08/04/19 Rosuvastatin Calcium 10 mg PO QHS 08/04/19 Allergies/Adverse Reactions: oxycodone Allergy (Severe, Verified 08/07/19 06:11) Shortness of Breath Review of Systems Constitutional: PRESENT: chills - On 08/24/2019, fever(s) Gastrointestinal: PRESENT: other - Denies abdominal pains may be a very mild pelvic discomfort. Denies nausea or vomiting. Had a regular BM yesterday. Physical Exam Vital Signs: Temp Pulse Resp BP Pulse Ox 98.7 F 73 14 132/88 H 98 08/27/19 18:08 08/27/19 11:43 08/27/19 16:01 08/27/19 16:00 08/27/19 16:01 Intake & Output 08/26/19 08/27/19 08/28/19 06:59 06:59 06:59 Intake Total 1050 Balance 1050 Weight 96.615 kg General appearance: PRESENT: no acute distress Head exam: PRESENT: atraumatic Mouth exam: PRESENT: moist Neck exam: PRESENT: full ROM Respiratory exam: PRESENT: clear to auscultation kip Cardiovascular exam: PRESENT: RRR Pulses: PRESENT: normal radial pulses Vascular exam: PRESENT: normal capillary refill GI/Abdominal exam: PRESENT: soft - Minimal tenderness on left lower quadrant on deep palpation Rectal exam: PRESENT: deferred Neurological exam: PRESENT: alert, oriented to person, oriented to place, oriented to time, oriented to situation Psychiatric exam: PRESENT: appropriate affect Skin exam: PRESENT: normal color, warm Results Laboratory Results: 08/27/19 11:37 08/27/19 11:37 08/27/19 08/27/19 08/27/19 11:37 11:37 14:16 WBC 8.8 RBC 4.47 Hgb 14.4 Hct 41.3 MCV 92 MCH 32.1 MCHC 34.7 RDW 13.4 Plt Count 209 Seg Neutrophils % 72.2 Sodium 139.9 Potassium 3.7 Chloride 106 Carbon Dioxide 26 Anion Gap 8 BUN 14 Creatinine 1.09 Est GFR ( Amer) > 60 Glucose 98 Lactic Acid 0.7 Calcium 9.3 Total Bilirubin 0.6 AST 66 H Alkaline Phosphatase 190 H Total Protein 6.9 Albumin 4.0 08/27/19 08/27/19 11:37 11:37 Creatine Kinase 46 L CK-MB (CK-2) 0.28 Troponin I < 0.012 Impressions: Abdomen/Pelvis CT 08/27/19 00:00 IMPRESSION: 1. Acute perforated sigmoid diverticulitis. Tiny foci of gas in the mesenteric root. No focal drainable abscess. 2. Subcutaneous fluid collection in the left inguinal region may represent postoperative seroma. Cannot entirely exclude infected fluid collection. Clinical correlation is recommended. 3. Right renal cortical cysts. Chest X-Ray 08/27/19 11:42 IMPRESSION: NO ACUTE RADIOGRAPHIC FINDING IN THE CHEST. Assessment & Plan - Diagnosis (1) Acute sigmoid diverticulitis Is this a current diagnosis for this admission?: Yes (2) Elevated LFTs Is this a current diagnosis for this admission?: Yes - Time Time Spent: 30 to 50 Minutes - Plan Summary Plan Summary: 58-year-old male post bilateral inguinal hernia repair, seen in the ED initially on 08/24/2019 for fever and chills and sent home with a azithromycin for possible pneumonia. Patient was called in because of positive E. coli and blood culture. Patient denies any significant abdominal pains. No nausea or vomiting. Had a regular bowel movement yesterday. Is minimal tenderness in the left lower quadrant on deep palpation. CT scan showed acute diverticulitis with tiny gas in the mesentery. His white count is normal at 8.8 with lactic acid of 0.7. However his LFTs are slightly elevated compared to 08/24/2019. CT scan showed no stones in the gallbladder and patient with no tenderness in the right upper quadrant. He may have a mild hypotension on 08/24/2019 causing some liver dysfunction. Patient does not want to be admitted for hospitalization. Recommendations: Give p.o. Cipro and Flagyl for at least 10 days. Need to repeat his lab work especially the liver function test in about 3 or 4 days. Patient was instructed to come back to ED for any fever, chills, nausea, vomiting, severe abdominal pains, diarrhea. Patient appears to understand this instructions. He is scheduled to see Dr. Amin for further follow-up in about 1 to 2 weeks in the surgical clinic. He could then be followed up for his diverticulitis if he remains stable.
[2019-08-27 19:53] VITALS: BP 134/87
== END 2019-08-27 19:53 | disposition left against medical advice (07) ==
LOC: ER 10:36
DX: K57.20 Diverticulitis of large intestine with perforation and abscess without bleeding (principal); R79.89 Other specified abnormal findings of blood chemistry; R10.2 Pelvic and perineal pain; R78.81 Bacteremia; R50.9 Fever, unspecified; Q61.02 Congenital multiple renal cysts; I10 Essential (primary) hypertension; E78.5 Hyperlipidemia, unspecified; E78.00 Pure hypercholesterolemia, unspecified; Z98.890 Other specified postprocedural states; Z79.899 Other long term (current) drug therapy; Z88.6 Allergy status to analgesic agent; Z88.5 Allergy status to narcotic agent; Z53.29 Procedure and treatment not carried out because of patient's decision for other reasons
CPT/HCPCS: 93005; 36415; 87040; 82553; 82550; 83605; 85025; 80053; 84484; 71045; 74177; 93010; J7030; J0696; J2543; 96361; 96365; 96367; 99285

== ENCOUNTER 2019-08-31 10:25 | Emergency (ER) | payer BC ==
--- NOTE | 2019-08-31 11:23 | ER Document Report ---
ED Medical Screen (RME) - General Chief Complaint: Abnormal Lab Results Stated Complaint: ABNORMAL LABS Time Seen by Provider: 08/31/19 11:19 Primary Care Provider: MARII CRUZ PA-C [Primary Care Provider] - Follow up as needed Mode of Arrival: Ambulatory Information source: Patient Notes: HPI; 58-year-old male presents to the emergency room with ongoing abdominal pain. Patient was seen here on the diagnosed with ruptured diverticulum and elevated liver enzymes. He was seen and evaluated by Dr. Velazquez and signed out AGAINST MEDICAL ADVICE. Patient states he is decided to come back and continue with care. Taking the medications as prescribed. Denies any nausea, vomiting, PE: Alert and oriented x3. Mild distress noted. Lungs: Clear to auscultation without rales, rhonchi, wheezes. Heart: Regular rate rhythm without murmurs, rubs, gallops. Unable to do full abdominal exam in triage. I have greeted and performed a rapid initial assessment of this patient. A comprehensive ED assessment and evaluation of the patient, analysis of test results and completion of the medical decision making process will be conducted by additional ED providers. I have specifically instructed the patient or family members with the patient to immediately return to any nursing staff should anything change in the patient's condition or with their chief complaint. TRAVEL OUTSIDE OF THE [place] IN LAST 30 DAYS: No - Related Data Allergies/Adverse Reactions: oxycodone Allergy (Severe, Verified 08/31/19 11:14) Shortness of Breath Past Medical History - Past Medical History Cardiac Medical History: Reports: Hx Hypercholesterolemia, Hx Hypertension Denies: Hx Coronary Artery Disease, Hx Heart Attack Pulmonary Medical History: Denies: Hx Asthma, Hx Bronchitis, Hx COPD, Hx Pneumonia Neurological Medical History: Denies: Hx Cerebrovascular Accident, Hx Seizures Renal/ Medical History: Reports: Hx Kidney Stones. Denies: Hx Peritoneal Dialysis GI Medical History: Reports: Hx Gastroesophageal Reflux Disease Musculoskeltal Medical History: Reports Hx Arthritis Past Surgical History: Reports: Hx Herniorrhaphy, Hx Orthopedic Surgery - rkr, Other - Bilateral inguinal hernia repair 08/07/[address] Amin - Immunizations Hx Diphtheria, Pertussis, Tetanus Vaccination: Yes Physical Exam - Vital signs Vitals: Temp Pulse Resp BP Pulse Ox 98.2 F 98 18 126/72 H 100 08/31/19 10:31 08/31/19 10:31 08/31/19 10:31 08/31/19 10:31 08/31/19 10:31 Course - Vital Signs Vital signs: Temp Pulse Resp BP Pulse Ox 98.2 F 98 18 126/72 H 100 08/31/19 10:31 08/31/19 10:31 08/31/19 10:31 08/31/19 10:31 08/31/19 10:31 Doctor's Discharge - Discharge Referrals: MARII CRUZ PA-C [Primary Care Provider] - Follow up as needed
[2019-08-31 12:07] LABS: ABSOLUTE BASOPHILS # (AUTO) 0.1 10^3/uL (0.0-0.2); ABSOLUTE EOSINOPHILS # (AUTO) 0.2 10^3/uL (0.0-0.6); ABSOLUTE LYMPHOCYTES (AUTO) 2.5 10^3/uL (0.5-4.7); ABSOLUTE MONOCYTES (AUTO) 0.8 10^3/uL (0.1-1.4); ABSOLUTE NEUT (AUTO) 7.8 10^3/uL (1.7-8.2); BASOPHILS % (AUTO) 0.8 % (0-2); EOSINOPHILS % (AUTO) 1.7 % (0-6); HEMATOCRIT 44.1 % (37.9-51.0); HEMOGLOBIN 14.9 g/dL (13.5-17.0); LYMPHOCYTES % (AUTO) 21.9 % (13-45); MEAN CORPUSCULAR HEMOGLOBIN 31.8 pg (27.0-33.4); MEAN CORPUSCULAR HGB CONC 33.8 g/dL (32.0-36.0); MEAN CORPUSCULAR VOLUME 94 fl (80-97); MONOCYTES % (AUTO) 7.3 % (3-13); PLATELET COUNT 415 10^3/uL (150-450); RED CELL DISTRIBUTION WIDTH 13.3 % (11.5-14.0); SEGMENTED NEUTROPHILS % (AUTO) 68.3 % (42-78); TOTAL CELLS COUNTED % (AUTO) 100 %; WHITE BLOOD COUNT 11.4 10^3/uL (4.0-10.5)
[2019-08-31 12:17] LABS: APPEARANCE,URINE SLIGHTLY-CLOUDY; BILIRUBIN,URINE SMALL (NEGATIVE); COLOR,URINE DARK YELLOW; GLUCOSE, URINE NEGATIVE (NEGATIVE); KETONES,URINE NEGATIVE (NEGATIVE); LEUKOCYTE ESTERASE,URINE SMALL (NEGATIVE); NITRITE,URINE NEGATIVE (NEGATIVE); PROTEIN,URINE 100 mg/dL (NEGATIVE); URINE SPECIFIC GRAVITY 1.027
[2019-08-31 12:24] LABS: ALBUMIN 4.5 g/dL (3.5-5.0); ALKALINE PHOSPHATASE 165 U/L (38-126); ANION GAP 11 (5-19); ASPARTATE AMINO TRANSFERASE 49 U/L (17-59); BILIRUBIN,TOTAL 0.6 mg/dL (0.2-1.3); BLOOD UREA NITROGEN 17 mg/dL (7-20); CALCIUM 9.9 mg/dL (8.4-10.2); CARBON DIOXIDE 25 mmol/L (22-30); CHLORIDE 105 mmol/L (98-107); GLUCOSE 108 mg/dL (75-110); POTASSIUM 4.7 mmol/L (3.6-5.0); TOTAL PROTEIN 7.7 g/dL (6.3-8.2)
--- NOTE | 2019-08-31 15:11 | RADIOLOGY REPORT (SQ) ---
EXAM DESCRIPTION: CT ABD/PELVIS WITH IV ONLY IMAGES COMPLETED DATE/TIME: 08/31/2019 2:54 pm REASON FOR STUDY: abdominal pain COMPARISON: 08/27/2019 TECHNIQUE: CT scan of the abdomen and pelvis performed using helical scanning technique with dynamic intravenous contrast injection. No oral contrast. Images reviewed with lung, soft tissue, and bone windows. Reconstructed coronal and sagittal MPR images reviewed. Delayed images for evaluation of the urinary system also acquired. All images stored on PACS. All CT scanners at this facility use dose modulation, iterative reconstruction, and/or weight based d osing when appropriate to reduce radiation dose to as low as reasonably achievable (ALARA). [facility]: Dose Right [facility]: CareDose [facility]: Dose Right [facility]: Teradose 4D [facility]: [employer] CONTRAST TYPE AND DOSE: contrast/concentration: Isovue mmol/ml; Total Contrast Delivered: 98.0 ml; Total Saline Delivered: 70.2 ml RENAL FUNCTION: BUN 14, creatinine 1.09 RADIATION DOSE: CT Rad equipment meets quality standard of care and radiation dose reduction techniq ues were employed. CTDIvol: 10.2 - 14.3 mGy. DLP: 2272 mGy-cm.. LIMITATIONS: None. FINDINGS: LOWER CHEST: No significant findings. No nodules or infiltrates. LIVER: Normal size. No masses. No dilated ducts. SPLEEN: Normal size. No focal lesions. PANCREAS: No masses. No significant calcifications. No adjacent inflammation or peripancreatic fluid collections. Pancreatic duct not dilated. GALLBLADDER: No identified stones by CT criteria. No inflammatory changes to suggest cholecystitis. ADRENAL GLANDS: Stable small left adrenal lesion most likely adenoma or hyperplasia. RIGHT KIDNEY AND URETER: Small stable right renal cysts. No solid masses. No significant calcifica tions. No hydronephrosis or hydroureter. LEFT KIDNEY AND URETER: No solid masses. No significant calcifications. No hydronephrosis or hydr oureter. AORTA AND VESSELS: No aneurysm. No dissection. Renal arteries, SMA, celiac without stenosis. RETROPERITONEUM: No retroperitoneal adenopathy, hemorrhage or masses. BOWEL AND PERITONEAL CAVITY: Scattered diverticuli. No focal abscess or fluid collection. Inflammat ory changes surrounding the sigmoid colon previously described are improved. No free air. APPENDIX: Normal. PELVIS: Persistent left inguinal hernia containing fluid. ABDOMINAL WALL: No masses. No hernias. BONES: No significant or acute findings. OTHER: No other significant finding. IMPRESSION: Persistent diverticular change in the sigmoid colon. No acute diverticulitis. Inflamma tory changes surrounding the sigmoid colon are improved. Stable left inguinal hernia containing fluid. TECHNICAL DOCUMENTATION: JOB ID: [id number] Quality ID # [id number]: Final reports with documentation of one or more dose reduction techniques (e.g., Au tomated exposure control, adjustment of the mA and/or kV according to patient size, use of iterative reconstruction technique) 2010 [employer]- All Rights Reserved Reading location - IP/workstation name: [email or web address]
[2019-08-31] MEDS ORDERED: IBUPROFEN 800 MG TABLET PO ONE (17:40)
[2019-08-31 19:02] VITALS: BP 129/83
--- NOTE | 2019-09-01 01:15 | ER Document Report ---
Entered by MJ JUAN SCRIBE 08/31/19 1715 Acting as scribe for:LAURIE PUGH DO ED GI/ - General Chief Complaint: Abnormal Lab Results Stated Complaint: ABNORMAL LABS Time Seen by Provider: 08/31/19 11:19 Primary Care Provider: TUNG AMIN MD [ACTIVE STAFF] - 09/01/19 MARII CRUZ PA-C [Primary Care Provider] - Follow up as needed Mode of Arrival: Ambulatory Information source: Patient Notes: This 58 year old male patient presents to the ED today with complaints of ongoing lower abdominal pain related to his bilateral inguinal repair on 08/07/19. Patient states that he was seen here on 08/23 for fever/chills and had a chest x-ray that revealed PNA, so he was placed on Azithromycin; blood cultures were drawn during that visit. He mentions that on 08/25 he didn't feel any better and that he was notified by an ED staff that he had positive blood cultures that grew out E. coli, so he returned to the ED on 08/26. At that visit, he had a CT of the abdomen/pelvis that revealed acute perforated sigmoid diverticulitis and he was evaluated by Dr. Velazquez, but he left AMA because he felt better. He was started on Cipro and Flagyl at that time. Patient reports that he felt fine over the weekend and on 08/28, he smoked some ribs; however, the following day, he felt "rough." He notes that today, he felt bad initially but got better throughout the day. He decided to come back for further treatment and care. Reports mild nausea and diarrhea. No fever or chills. TRAVEL OUTSIDE OF THE [place] IN LAST 30 DAYS: No - Related Data Allergies/Adverse Reactions: oxycodone Allergy (Severe, Verified 08/31/19 11:14) Shortness of Breath Home Medications: cipro, flagyl, amlodipine, rosuvastatin, omeprazole Past Medical History - General Information source: Patient - Social History Smoking Status: Current Every Day Smoker Cigarette use (# per day): Yes Chew tobacco use (# tins/day): No Smoking Education Provided: No Frequency of alcohol use: Social Drug Abuse: None Family History: Reviewed & Not Pertinent Patient has suicidal ideation: No Patient has homicidal ideation: No - Past Medical History Cardiac Medical History: Reports: Hx Hypercholesterolemia, Hx Hypertension Renal/ Medical History: Reports: Hx Kidney Stones GI Medical History: Reports: Hx Gastroesophageal Reflux Disease Musculoskeletal Medical History: Reports Hx Arthritis Past Surgical History: Reports: Hx Inguinal Hernia - Bilateral inguinal hernia repair 08/07/[address] Amin, Hx Orthopedic Surgery - rkr - Immunizations Hx Diphtheria, Pertussis, Tetanus Vaccination: Yes Review of Systems - Review of Systems Constitutional: See HPI. denies: Chills, Fever EENT: No symptoms reported Cardiovascular: No symptoms reported Respiratory: No symptoms reported Gastrointestinal: See HPI, Abdominal pain, Diarrhea, Nausea Male Genitourinary: No symptoms reported Musculoskeletal: No symptoms reported Skin: No symptoms reported Hematologic/Lymphatic: No symptoms reported Neurological/Psychological: No symptoms reported -: Yes All other systems reviewed and negative Physical Exam - Vital signs Vitals: Temp Pulse Resp BP Pulse Ox 98.2 F 98 18 126/72 H 100 08/31/19 10:31 08/31/19 10:31 08/31/19 10:31 08/31/19 10:31 08/31/19 10:31 - General General appearance: Appears well, Alert In distress: None - HEENT Head: Normocephalic, Atraumatic Eyes: Normal Pupils: PERRL - Respiratory Respiratory status: No respiratory distress Chest status: Nontender Breath sounds: Normal Chest palpation: Normal - Cardiovascular Rhythm: Regular Heart sounds: Normal auscultation Murmur: No Friction rub: No Gallop: None auscultated - Abdominal Inspection: Healed incision - Lower abdomen near umbilicus Distension: No distension, Other Tenderness: Nontender - Abdomen soft Organomegaly: No organomegaly - Back Back: Normal, Nontender - Extremities General upper extremity: Normal inspection General lower extremity: Normal inspection. No: Edema - Neurological Neuro grossly intact: Yes Orientation: AAOx4 Ave Coma Scale Eye Opening: Spontaneous [place] Coma Scale Verbal: Oriented [place] Coma Scale Motor: Obe[address] Coma Scale Total: 15 - Psychological Associated symptoms: Normal affect, Normal mood - Skin Skin Temperature: Warm Skin Moisture: Dry Skin Color: Normal Course - Vital Signs Vital signs: Temp Pulse Resp BP Pulse Ox 98.3 F 63 18 129/83 H 99 08/31/19 18:58 08/31/19 18:58 08/31/19 18:58 08/31/19 18:58 08/31/19 18:58 - Laboratory Result Diagrams: 08/31/19 11:45 08/31/19 11:45 Laboratory results interpreted by me: 08/31/19 08/31/19 08/31/19 11:45 11:45 11:45 WBC 11.4 H ALT 75 H Alkaline Phosphatase 165 H Urine Protein 100 H Urine Bilirubin SMALL H Urine Urobilinogen 2.0 H Ur Leukocyte Esterase SMALL H Discharge - Discharge Clinical Impression: Diverticulitis large intestine Qualifiers: Diverticulitis bleeding: without bleeding Diverticulitis complication: unspecified complication status Qualified Code(s): K57.32 - Diverticulitis of large intestine without perforation or abscess without bleeding Condition: Stable Disposition: HOME, SELF-CARE Instructions: Ciprofloxacin ([facility]), Clear Liquid Diet ([facility]), Diverticulitis ([facility]) Additional Instructions: Clear liquid diet. Call Dr. Amin's office to arrange follow up. Take the antibiotics as directed. Please return here for weakness, increasing pain or other problems or other concerns. Prescriptions: Ibuprofen [Motrin 600 mg Tablet] 600 mg PO Q8HP PRN #30 tablet PRN Reason: Ciprofloxacin HCl [Cipro 500 mg Tablet] 500 mg PO BID #30 tablet Metronidazole [Flagyl 500 mg Tablet] 500 mg PO Q6H #60 tablet Referrals: MARII CRUZ PA-C [Primary Care Provider] - Follow up as needed TUNG AMIN MD [ACTIVE STAFF] - 09/01/19 I personally performed the services described in the documentation, reviewed and edited the documentation which was dictated to the scribe in my presence, and it accurately records my words and actions.
== END 2019-08-31 19:00 | disposition home or self-care (01) ==
LOC: ER 10:25
DX: K57.32 Diverticulitis of large intestine without perforation or abscess without bleeding (principal); K40.90 Unilateral inguinal hernia, without obstruction or gangrene, not specified as recurrent; R10.30 Lower abdominal pain, unspecified; Z98.890 Other specified postprocedural states; R11.0 Nausea; R19.7 Diarrhea, unspecified; F17.210 Nicotine dependence, cigarettes, uncomplicated; E78.00 Pure hypercholesterolemia, unspecified; I10 Essential (primary) hypertension; K21.9 Gastro-esophageal reflux disease without esophagitis; Z79.899 Other long term (current) drug therapy; Z88.6 Allergy status to analgesic agent; Z88.5 Allergy status to narcotic agent
CPT/HCPCS: 36415; 74177; 80053; 81001; 85025; 99284

== ENCOUNTER 2019-10-28 10:57 | Day surgery (SDC) | payer BC ==
[2019-10-28] MEDS ORDERED: PROPOFOL INJ 200 MG/20 ML VIAL IV ONE ×2 (13:05→14:34)
[2019-10-28 15:19] VITALS: BP 147/78
--- NOTE | 2019-10-29 06:36 | Discharge Summary ---
Discharge Summary (SDC) - Discharge Final Diagnosis: Diverticulosis, multiple colon polyps Date of Surgery: 10/28/19 Discharge Date: 10/28/19 Condition: Stable Forms: EU Anesthesia D/C Instructions, Discharge POC-Surgical Service Treatment or Instructions: NO DRIVING ADVANCE DIET TOLERATED AVOID SPICY, GREASY, OR FATTY FOODS MAKE FOLLOW-UP APPOINTMENT Referrals: TUNG DALY MD [ACTIVE STAFF] - Discharge Diet: As Tolerated Respiratory Treatments at Home: Deep Breathing/Coughing, Incentive Spirometer Discharge Activity: Activity As Tolerated, No Driving Home Care Assistance: None Needed Report the Following to Your Physician Immediately: Shortness of Breath, Nausea, Vomiting, Increase in Pain, Fever over 101 Degrees, Unusual Bleeding, IV Site Infection Signs
--- NOTE | 2019-10-29 06:44 | Operative Report ---
Nonrecallable Operative Report DATE OF SURGERY: 10/28/19 PREOPERATIVE DIAGNOSIS: History of multiple colon polyps. History of diverticulitis. POSTOPERATIVE DIAGNOSIS: 1. Diverticulosis, without signs of diverticulitis. 2. Multiple colon polyps, not all were able to be completely removed. 3. Internal hemorrhoids OPERATION: 1. Colonoscopy to the cecum. 2. Hot biopsy of multiple colon polyps. SURGEON: TUNG DALY ANESTHESIA: LMAC TISSUE REMOVED OR ALTERED: 1. Cecal polyp x2. 2. A sending colon polyp. 3. Hepatic flexure polyp. 4. Transverse colon polyp (biopsy only) at the tattooed area. 5. Splenic flexure polyp. 6. Descending colon polyp at 65 cm. 7. Colon polyp at 30 cm x 3. 8. Rectal polyp x2 COMPLICATIONS: None apparent ESTIMATED BLOOD LOSS: Minimal PROCEDURE: Drains/implants: None. Procedure in detail: After informed consent was obtained, the patient was brought to the operating room and laid in the left lateral decubitus position. The endoscope was passed up the rectum, sigmoid colon, descending colon, across the transverse colon, down the ascending colon, and into the cecum. The ileocecal valve and appendiceal orifice were identified. The scope was then withdrawn, circumferentially noting the mucosa. The prep was fair. Multiple washings and suctioning's were required in order to visualize the entirety of the mucosa. This was successful. In the cecum there were 2 small polyps immediately adjacent to 1 another. These were removed via hot biopsy forcep. The scope was withdrawn to the ascending colon where another small polyp was removed via hot biopsy forcep. The scope was pulled to the hepatic flexure, where another polyp was identified and removed. The scope was pulled into the transverse colon. In the transverse colon in an area at approximately the midportion, a large tattoo was identified. There was a multifocal adenomatous appearing lesion present in this area. Several biopsies were taken of the large lesion. The scope was then withdrawn to the hepatic flexure, where another polyp was removed. In the descending colon, at 65 cm another polyp was removed. The scope was withdrawn to 30 cm in the sigmoid colon where 3 polyps were removed. The scope was withdrawn to the rectum where 2 polyps were removed. A retroflexion maneuver was performed in the rectum noting enlarged internal hemorrhoids, that were not actively bleeding. Please note that there were large, scattered diverticula throughout the colon extending from the ascending colon to the sigmoid colon. The scope was then straightened, air was suctioned from the rectum, the scope was removed, and the procedure was concluded. All sponge, instrument, and needle counts were correct x2. Condition: Stable. Recommendation: The patient will need either repeat colonoscopy in an attempt to remove the remaining large transverse colon polyp or surgical excision for def initive cure. This will be discussed with him at length on his office visit.
== END 2019-10-28 15:29 | disposition home or self-care (01) ==
LOC: END 10:57
PROVIDERS: ATTEND Surgery
DX: K57.30 Diverticulosis of large intestine without perforation or abscess without bleeding (principal); K63.5 Polyp of colon; K64.8 Other hemorrhoids; Z86.010 Personal history of colon polyps; Z80.0 Family history of malignant neoplasm of digestive organs; E78.2 Mixed hyperlipidemia; I10 Essential (primary) hypertension; K21.9 Gastro-esophageal reflux disease without esophagitis; M19.90 Unspecified osteoarthritis, unspecified site; F17.210 Nicotine dependence, cigarettes, uncomplicated; Z88.8 Allergy status to other drugs, medicaments and biological substances; Z03.818 Encounter for observation for suspected exposure to other biological agents ruled out; Z79.899 Other long term (current) drug therapy; Z88.6 Allergy status to analgesic agent
CPT/HCPCS: 45380; 45384; 88305 ×2; 00811; U0003; J2704; C9803; 811; 87635